=== PATIENT | male | born 1955 | race Caucasian/White ===

== ENCOUNTER 2016-07-14 11:48 | Emergency (ER) | payer OTHER ==
[~2016-07-14] VITALS: Wt 75.0 kg
[~2016-07-14 11:48] MED LIST: BACTDS PO; DOCU-144 PO; HYDR-906 PO; MAGN400O4 PO
--- NOTE | 2016-07-14 15:43 | ERA ---
ER Documentation Chief Complaint Date/Time DATE: 07/14/16 TIME: 15:42 Chief Complaint 2 MOS POST OP PROSTATE SURGERY AND DYSURIA HPI The patient is a 60-year-old male, presenting to the ER because of inability to void completely, decreased swelling, painful urination since TURP 2 months ago, was for the last couple days. He has been follow-up with his urologist. He denies fever, chills, neck pain, chest pain, dyspnea, abdominal pain, vomiting, diarrhea, constipation. He does not smoke, drink Past medical history: Hypertension, dyslipidemia, BPH ROS All systems reviewed and are negative except as per history of present illness. Medications Home Meds Active Scripts Ciprofloxacin Hcl* (Ciprofloxacin Hcl*) 500 Mg Tablet, 500 MG PO BID for 10 Days , TAB Prov:CHEN LOPEZ MD 07/14/16 Discontinued Scripts Magnesium Hydroxide* (Milk Of Magnesia*) 400 Mg/5 Ml Oral.susp, 30 ML PO DAILY for CONSTIPATION, #10 ML Prov:BIPIN TOBIAS NP 05/10/16 Docusate Sodium* (Colace*) 100 Mg Capsule, 100 MG PO BID for 10 Days, CAP Prov:BIPIN TOBIAS NP 05/10/16 Hydrocodone/Acetaminophen ([place] 5-325 Tablet) 1 Each Tablet, 1 EACH PO Q6H for PAIN, #30 TAB Prov:BIPIN TOBIAS NP 05/10/16 Sulfamethoxazole-Trimethoprim* (Bactrim* DS) 800-160 Mg Tab, 1 TAB PO BID for 7 Days, #20 TAB Prov:BIPIN TOBIAS NP 05/10/16 Allergies Allergies: Coded Allergies: No Known Drug Allergies (Verified Allergy, Unknown, 05/08/16) PMhx/Soc History of Surgery: No Anesthesia Reaction: No Hx Neurological Disorder: No Hx Respiratory Disorders: No Hx Cardiac Disorders: Yes (HTN, HYPERLIPIDEMIA ) Hx Psychiatric Problems: No Hx Miscellaneous Medical Probl: No Hx Alcohol Use: No Hx Substance Use: No Hx Tobacco Use: No Physical Exam Vitals Vital Signs Date Time Temp Pulse Resp B/P Pulse Ox O2 Delivery O2 Flow Rate FiO2 07/14/16 17:54 98.2 73 18 150/75 98 Room Air 07/14/16 12:08 98.5 74 20 154/85 97 Physical Exam Const: No acute distress. Head: Atraumatic. Eyes: Normal Conjunctiva. ENT: Normal External Ears, Nose and Mouth. Neck: Full range of motion. No meningismus. Resp: Clear to auscultation bilaterally. Cardio: Regular rate and rhythm, no murmurs. Abd: Soft, non distended, normal bowel sounds, non tender. Skin: No petechiae or rashes. Back: No midline or flank tenderness. Ext: No cyanosis, or edema. Neur: Awake and alert. No focal deficit Psych: Normal Mood and Affect. Result Diagram: 07/14/16 1625 07/14/16 1625 Results 24 hrs Laboratory Tests Test 07/14/16 15:54 07/14/16 16:25 Bedside Urine Blood Trace-intact Bedside Urine Glucose (UA) Negative Bedside Urine Ketones (LAB) Negative Bedside Urine Leukocyte Esterase (L 1+ Bedside Urine Nitrite (LAB) Negative Bedside Urine Protein (LAB) 1+ Bedside Urine pH (LAB) 6.0 Alanine Aminotransferase (ALT/SGPT) 134IU/L Albumin 4.6g/dl Albumin/Globulin Ratio 1.12 Alkaline Phosphatase 108IU/L Anion Gap 19 Aspartate Amino Transf (AST/SGOT) 63IU/L Basophils # 0.010^3/ul Basophils % 0.6% Blood Morphology Comment Blood Urea Nitrogen 13mg/dl Calcium Level 9.6mg/dl Carbon Dioxide Level 28mmol/L Chloride Level 101mmol/L Creatinine 0.68mg/dl Direct Bilirubin 0.00mg/dl Eosinophils # 0.210^3/ul Eosinophils % 2.4% Globulin 4.10g/dl Glucose Level 99mg/dl Hematocrit 48.0% Hemoglobin 16.3g/dl Indirect Bilirubin 0.3mg/dl Lipase 137U/L Lymphocytes # 2.110^3/ul Lymphocytes % 28.5% Mean Corpuscular Hemoglobin 28.0pg Mean Corpuscular Hemoglobin Concent 34.0g/dl Mean Corpuscular Volume 82.4fl Mean Platelet Volume 8.5fl Monocytes # 0.510^3/ul Monocytes % 6.4% Neutrophils # 4.510^3/ul Neutrophils % 62.1% Nucleated Red Blood Cells # 0.010^3/ul Nucleated Red Blood Cells % 0.0/100WBC Platelet Count 19207^3/UL Potassium Level 4.1mmol/L Red Blood Count 5.8310^6/ul Red Cell Distribution Width 13.0% Sodium Level 144mmol/L Total Bilirubin 0.3mg/dl Total Protein 8.7g/dl White Blood Count 7.310^3/ul Current Medications Medications (Trade) Dose Ordered Sig/Joselito Route PRN Reason Start Time Stop Time Status Last Admin Dose Admin Ciprofloxacin (Cipro) 500 mg ONCE ONCE PO 07/14/16 17:30 07/14/16 17:31 DC 07/14/16 17:20 Procedures/MDM MEDICAL MAKING DECISION: The patient is an 60-year-old male, presenting with acute UTI. He was treated with Cipro. The differential diagnoses considered include but are not limited to cholelithiasis, cholecystitis, cystitis, pancreatitis, hepatitis, gastritis, peptic ulcer disease, gastric ulcer, appendicitis, diverticulitis, cholangitis, choledocholithiasis, partial small bowel obstruction. Departure Diagnosis: Primary Impression: UTI (urinary tract infection) Condition: Good Comments I discussed the findings with the patient. I advised the patient to follow-up with his urologist Dr. Love in about 1-2 days, sooner if needed and return if any concern. He was discharged with Cipro and Pyridium CHEN LOPEZ MD Jul 14, 2016 15:43
[2016-07-14 15:55] LABS: URINE BLOOD (Dip) POC Trace-intact (NEGATIVE)
[2016-07-14 16:37] LABS: BASOPHILS % 0.6 % (0.0-2.0); EOSINOPHILS # 0.2 10^3/ul (0.0-0.5); EOSINOPHILS % 2.4 % (0.0-7.0); HEMOGLOBIN 16.3 g/dl (14.0-18.0); LYMPHOCYTES # 2.1 10^3/ul (0.8-2.9); LYMPHOCYTES % 28.5 % (15.0-51.0); MEAN CORPUSCULAR VOLUME 82.4 fl (82.0-101.0); MEAN PLATELET VOLUME 8.5 fl (7.4-10.4); MONOCYTE # 0.5 10^3/ul (0.3-0.9); MONOCYTES % 6.4 % (0.0-11.0); NEUTROPHIL # 4.5 10^3/ul (1.6-7.5); NEUTROPHILS % 62.1 % (39.0-77.0); PLATELET COUNT 177 10^3/UL (140-440); RED BLOOD COUNT 5.83 10^6/ul (4.70-6.10); UNCORRECTED WBC 7.3 10^3/ul (4.8-10.8); WHITE BLOOD COUNT 7.3 10^3/ul (4.8-10.8)
[2016-07-14 16:39] LABS: CONDITION 1
[2016-07-14 16:45] LABS: ALBUMIN 4.6 g/dl (3.3-4.9)
[2016-07-14 16:46] LABS: POTASSIUM 4.1 mmol/L (3.5-5.1)
[2016-07-14 16:48] LABS: ALBUMIN/GLOBULIN RATIO 1.12; BILIRUBIN,INDIRECT 0.3 mg/dl (0-1.1); BILIRUBIN,TOTAL 0.3 mg/dl (0.2-1.3); CALCIUM 9.6 mg/dl (8.4-10.2); CREATININE 0.68 mg/dl (0.61-1.24); TOTAL PROTEIN 8.7 g/dl (6.1-8.1)
[2016-07-14] MEDS ORDERED: CIPROFLOXACIN 500 MG TAB PO ONE (17:30)
[2016-07-14] MEDS ORDERED: CIPR500T4 PO (17:49)
[2016-07-14 17:54] VITALS: BP 150/75; PULSE 73; RESP 18; TEMP 98.2
== END 2016-07-14 17:57 | disposition home or self-care (01) ==
LOC: E/R 11:48
DX: N39.0 Urinary tract infection, site not specified (principal); I10 Essential (primary) hypertension
CPT/HCPCS: 80053; 81003; 83690; 85025; Z7610; 36415; 99283

== ENCOUNTER 2017-07-10 07:30 | Emergency (ER) | END 2017-07-10 13:37 | disposition home or self-care (01) ==